=== PATIENT | female | born 1990 | race Caucasian/White ===

== ENCOUNTER 2020-03-07 15:40 | Observation (INO) | payer OTHER, SELFPAY ==
[2020-03-07 16:45] VITALS: BP 120/61; PULSE 74
[2020-03-07 17:01] VITALS: BMI 40.9
--- NOTE | 2020-03-07 17:01 | OBADM ---
This patient, Cookie Fuentes Widdolinh, admitted to the OB room Labor/Delivery/Recovery 106 for observation. Patient/family oriented to hospital policies and general routines including ID bracelet, bed and alarms, visiting hours, pain management, procedures, bathroom and other care routines, personal items, smoking policy, room service/diet, and visiting hours. Patient/Family are encouraged to report perceived risks to care and to ask questions if they do not understand what they are told or what they should do.
[2020-03-07 17:09] LABS: Add Urine Microscopic? YES; Appearance Urine Clear (Clear); Bacteria Urine Trace /hpf; Bilirubin Urine Negative (Negative); Blood Urine Negative (Negative); Color Urine Yellow (Yellow); Glucose Urine UA Negative (Negative); Ketones Urine Negative (Negative); Leukocyte Esterase Ur Negative LEU/UL (Negative); Mucus Urine Heavy /lpf; Nitrate Urine Negative (Negative); Protein Urine 1+ mg/dL (Negative); RBC Urine 0-2 /hpf (0-2); Specific Grav Ur 1.029 (1.001-1.035); Squamous Epithelial Cell Urine Rare /hpf (Few); WBC Urine 0-3 /hpf
--- NOTE | 2020-03-11 03:06 | PM.OBTRLD ---
OB - Triage/Final Diagnosis Visit Information Date of evaluation: 03/07/20 Reason for evaluation: threatened labor Evaluation Laboratory results: Laboratory Tests 03/07/20 16:50 Urine Color Yellow Urine Appearance Clear Urine pH 6.0 Ur Specific [place] 1.029 Urine Protein 1+ H Urine Glucose (UA) Negative Urine Ketones Negative Ur Blood (Man) Negative Urine Nitrate Negative Urine Bilirubin Negative Urine Urobilinogen 2.0 H Leukocyte Esterase Rfl Negative Urine RBC 0-2 Urine WBC 0-3 Ur Squamous Epith Cells Rare Urine Bacteria Trace Urine Mucus Heavy H
--- NOTE | 2020-03-11 03:07 | PM.OBTRLD ---
OB - Triage/Final Diagnosis Visit Information Date of evaluation: 03/09/20 Reason for evaluation: threatened labor Evaluation Laboratory results: Laboratory Tests 03/07/20 16:50 Urine Color Yellow Urine Appearance Clear Urine pH 6.0 Ur Specific [place] 1.029 Urine Protein 1+ H Urine Glucose (UA) Negative Urine Ketones Negative Ur Blood (Man) Negative Urine Nitrate Negative Urine Bilirubin Negative Urine Urobilinogen 2.0 H Leukocyte Esterase Rfl Negative Urine RBC 0-2 Urine WBC 0-3 Ur Squamous Epith Cells Rare Urine Bacteria Trace Urine Mucus Heavy H
== END 2020-03-07 17:46 | disposition home or self-care (01) ==
PROVIDERS: Advanced Practice Midwife; Admitting Provider Obstetrics & Gynecology; Visit Provider Obstetrics & Gynecology
DX: O47.03 False labor before 37 completed weeks of gestation, third trimester (principal); Z3A.37 37 weeks gestation of pregnancy
CPT/HCPCS: 81001; G0378; G0379

== ENCOUNTER 2020-03-08 19:27 | Observation (INO) | payer OTHER, SELFPAY ==
[2020-03-08 19:40] VITALS: BMI 41.8
--- NOTE | 2020-03-09 00:22 | PC.NURSE ---
03/08/20201939 This patient, Cookie Adam, admitted to the OB room Labor/Delivery/Recovery 105 for observation. Patient/family oriented to hospital policies and general routines including ID bracelet, bed and alarms, visiting hours, pain management, procedures, bathroom and other care routines, personal items, smoking policy, room service/diet, and visiting hours. Patient/Family are encouraged to report perceived risks to care and to ask questions if they do not understand what they are told or what they should do.
--- NOTE | 2020-03-13 12:27 | PM.OBTRLD ---
OB - Triage/Final Diagnosis Visit Information Date of evaluation: 03/09/20 Reason for evaluation: threatened labor
== END 2020-03-08 22:35 | disposition home or self-care (01) ==
PROVIDERS: Admitting Provider Obstetrics & Gynecology; Visit Provider Obstetrics & Gynecology
DX: O47.03 False labor before 37 completed weeks of gestation, third trimester (principal); Z3A.36 36 weeks gestation of pregnancy
CPT/HCPCS: G0378; G0379

== ENCOUNTER 2020-03-18 04:50 | Inpatient (IN) | payer OTHER, SELFPAY ==
[2020-03-18] VITALS (85 sets, daily range): BP systolic 61–161; BP diastolic 32–109; PULSE 44–115; RESP 16–18; TEMP 36.8–37.2; O2SAT 80–100; BMI 42.3
--- NOTE | 2020-03-18 05:28 | LDADM ---
This patient, Cookie Adam, was admitted to Labor/Delivery/Recovery 102 on 03/18/20 at 04:50. Plans for labor, pain management and were discussed with patient. Patient/family oriented to hospital policies and general routines including ID bracelet, bed and alarms, visiting hours, pain management, procedures, bathroom and other care routines, personal items, smoking policy, room service/diet and guest tray routines, infant security routines, and visiting hours. Patient/Family are encouraged to report perceived risks to care and to ask questions if they do not understand what they are told or what they should do. See OBIX for further documentation.
[2020-03-18 05:42] LABS: Basophils Absolute Auto 0.1 K/mm3 (0.0-0.1); Basophils Percent Auto 0.3 % (0.2-1.2); Eosinophils Absolute Auto 0.1 K/mm3 (0-0.3); Eosinophils Percent Auto 0.6 % (0-4.4); Hematocrit 36.6 % (37.0-47.0); Immature Granulocyte Absolute 0.07 K/mm3 (0.00-0.031); Immature Granulocyte Percent A 0.5 % (0-0.5); Lymphocytes Absolute Auto 2.87 K/mm3 (0.9-3.2); Lymphocytes Percent Auto 19.7 % (18.3-44.2); Mean Corpuscular HGB Conc 32.8 g/dl (32-36); Mean Corpuscular Hemoglobin 28.9 pg (26-34); Mean Corpuscular Volume 88.2 fl (80-100); Mean Platelet Volume 12.2 fl (7.4-10.4); Monocytes Percent Auto 6.6 % (2.6-8.5); Neutrophils Absolute Auto 10.5 K/mm3 (1.3-6.7); Neutrophils Percent Auto 72.3 % (45.5-73.1); Platelet Count Result 204 k/mm3 (150-375); Red Blood Count 4.15 M/mm3 (4.2-5.4); Red Cell Distribution Width 14.4 % (11.5-14.5); White Blood Count 14.5 K/mm3 (4.5-10.0)
[2020-03-18] MEDS: OXYTOCIN 30 UNITS/NS 500 ML 30 UNITS/500 ML BAG IV CONT (06:00)
--- NOTE | 2020-03-18 06:29 | WPDANESEPP ---
Anes - Eval Pre Procedure Procedure: Labor epidural Date/Time: 03/18/20 06:29 Surgeon: Gerardo Floyd Preop Diagnosis: pain during labor Pre Op Diagnosis: Induction of Labor Patient Data Age: 29 Gender: F Height: 1.63 m Weight: 112 kg Last Vital Signs Temp 37.1 C 03/18/20 06:00 Pulse 84 03/18/20 06:17 BP 123/74 03/18/20 06:17 Allergies Allergy/AdvReac Type Severity Reaction Status Date / Time naproxen Allergy Mild Unverified 09/18/13 11:10 Bumble Bee Allergy Mild SWELLING Uncoded 09/18/13 11:10 AND ITCHING Honey Bee Allergy Mild SWELLING Uncoded 09/18/13 11:10 AND ITCHING Home Medications Medication Instructions Recorded Confirmed Type PNV cmb#95-ferrous fumarate-FA 1 tablet PO DAILY MDD unknown 02/26/20 03/08/20 History [] Laboratory Tests 03/18/20 03/18/20 05:26 05:26 WBC 14.5 K/mm3 H K/mm3 (4.5-10.0) RBC 4.15 M/mm3 L M/mm3 (4.2-5.4) Hgb 12.0 g/dL g/dL (12.0-15.0) Hct 36.6 % L % (37.0-47.0) MCV 88.2 fl fl (80-100) MCH 28.9 pg pg (26-34) MCHC 32.8 g/dl g/dl (32-36) RDW 14.4 % % (11.5-14.5) Plt Count 204 k/mm3 k/mm3 (150-375) MPV 12.2 fl H fl (7.4-10.4) Immature Gran % (Auto) 0.5 % % (0-0.5) Neut % (Auto) 72.3 % % (45.5-73.1) Lymph % (Auto) 19.7 % % (18.3-44.2) [place] % (Auto) 6.6 % % (2.6-8.5) Eos % (Auto) 0.6 % % (0-4.4) Baso % (Auto) 0.3 % % (0.2-1.2) Lymph # (Auto) 2.87 K/mm3 K/mm3 (0.9-3.2) [place] # (Auto) 1.0 K/mm3 H K/mm3 (0.1-0.6) Eos # (Auto) 0.1 K/mm3 K/mm3 (0-0.3) Baso # (Auto) 0.1 K/mm3 K/mm3 (0.0-0.1) Abs Immat Gran (auto) 0.07 K/mm3 H K/mm3 (0.00-0.031) Absolute Neuts (auto) 10.5 K/mm3 H K/mm3 (1.3-6.7) Absolute Nucleated RBC 0.0 K/mm3 K/mm3 (0.0-0.012) Nucleated RBC % 0.0 % % (0.0-0.2) RPR Pending Patient hx anesthesia problems: none Family hx anesthesia problems: none [facility] Past Medical History Medical History (Updated 03/18/20 @ 06:30 by Lisy Jorgensen CRNA) IUP (intrauterine ), incidental Morbid obesity with BMI of 40.0-44.9, adult Family History Family History (Updated 02/26/20 @ 14:54 by Celena Daniels RN) Sibling Hypothyroidism Mother Ovarian dysfunction Social History Social History Smoking status: Never smoker Substance use: current Gender identity (if verbalized by the patient): Female Spiritual care concerns: No Exam Day of Procedure 03/18/20 06:29
--- NOTE | 2020-03-18 07:34 | WPDOBADMIT ---
Obstetrics - Admit Note Admission Note: record reviewed. No pertinent additions to the history and/or any subsequent changes in the physical findings that are not consistent with the expected course of the were found. EIL at 39 weeks, SVE /-2 large amount of clear odorless fluid Additions to the history and/or subsequent changes in the physical findings follow. None.
[2020-03-18] MEDS: fentaNYL CITRATE INJ (*CRX) 100 MCG/2 ML VIAL 50 MCG IV PUSH (08:12)
[2020-03-18 09:23] LABS: Rapid Plasma Reagin Non-Reactive (NonReactive)
[2020-03-18] MEDS: ONDANSETRON INJ 4 MG/2 ML VIAL IV PUSH (09:26)
--- NOTE | 2020-03-18 14:26 | P.PCNOB_ITS ---
OB - Delivery Note Procedure Delivery date: 03/18/20 Procedure: Vaginal delivery. Intrapartal events: None Induction method: AROM and per pitocin protocol Delivery monitor: external FHT and external uterine Route of delivery: Episiotomy description: None Laceration Description: Superficial Delivery repair: vicryl Specimen: No Estimated blood loss (mL): 100 Anesthesia type: Epidural Disposition: other () [place] Baby Date of : 03/18/20 Time of : 14:11 Weeks of gestation at delivery: 39 gender: Female Weight (pounds): 7 Weight (ounces): 2 presentation: vertex position: Left Occiput Anterior Placenta delivery description: Spontaneous cord vessel description: 3 Vessels and Delayed Cord Clamping score one minute: 8 score five minutes: 9 Narrative: Mom and baby in stable condition and skin to skin.
[2020-03-18] MEDS: OXYTOCIN 30 UNITS/NS 500 ML 30 UNITS/500 ML BAG 125 UNITS IV CONT (14:42)
[2020-03-18 16:12] LABS: Amphetamine Screen Urine Negative (Negative); Barbiturate Screen Urine Negative (Negative); Benzodiazepines Screen Urine Negative (Negative); Cannabinoid Screen Urine Negative (Negative); Cocaine Screen Urine Negative (Negative); Methadone Screen Urine Negative (Negative); Opiate Screen Urine Negative (Negative); Phencyclidine Screen Urine Negative (Negative)
--- NOTE | 2020-03-18 17:10 | PC.NURSE ---
Patient transferred to post room #283 per wheelchair from labor and delivery. Support person present. Oriented to unit, room, information board, rooming in, admission packet and security measures. Patient verbalizes understanding.
[2020-03-18] MEDS: ACETAMINOPHEN 325 MG TABLET 650 MG PO (19:29)
[2020-03-18] MEDS: IBUPROFEN 600 MG TABLET PO (23:15)
[2020-03-19 05:54] LABS: Hemoglobin 11.1 g/dL (12.0-15.0)
--- NOTE | 2020-03-19 07:29 | PM.OBPNVD ---
OB - PN: Subj Subjective Date/time seen: 03/19/20 07:29 Patient comments: no complaints baby status: doing well OB - PN: Obj Data Labs CBC & Chem 7: 03/19/20 05:28 Labs: Laboratory Results - last 24 hr 03/18/20 03/18/20 03/18/20 05:26 05:26 15:43 Hgb Hct Urine Opiates Screen Negative Urine Methadone Screen Negative Ur Barbiturates Screen Negative Ur Phencyclidine Scrn Negative Ur Amphetamine Screen Negative U Benzodiazepines Scrn Negative Urine Cocaine Screen Negative U Cannabinoids Screen Negative RPR Non-reactive Blood Type A Positive Antibody Screen Negative 03/19/20 05:28 Hgb 11.1 L Hct 34.0 L Urine Opiates Screen Urine Methadone Screen Ur Barbiturates Screen Ur Phencyclidine Scrn Ur Amphetamine Screen U Benzodiazepines Scrn Urine Cocaine Screen U Cannabinoids Screen RPR Blood Type Antibody Screen OB - PN A/P Plan day: 1 Plan: routine care and discharge home Time Spent With Patient Time: Total time spent is greater than 50% in coordination of care (as documented) at patient's floor/unit and/or counseling patient: Review of Systems Review of Systems: All systems reviewed & are unremarkable except as noted in HPI and below Exam Const: General: cooperative Nutritional Appearance: average body habitus Neuro: General: patient oriented x3 Psych: Appearance: grossly normal Affect: normal affect
[2020-03-19 08:00] VITALS: BP 119/67; PULSE 84; RESP 18; TEMP 36.8; O2SAT 100
[2020-03-19] MEDS: IBUPROFEN 600 MG TABLET PO ×2 (08:25→15:10)
[2020-03-19] MEDS: DOCUSATE SODIUM 100 MG CAPSULE PO (08:25)
[2020-03-19] MEDS: HYDROcodone/acetaminophen (*CRX) 5-325 MG TABLET 1 TAB PO ×2 (08:26→15:11)
--- NOTE | 2020-03-19 09:43 | WPDANLDPN2 ---
Anes-Prog Note L&D Date/Time: 03/19/20 09:43 Comfortable throughout: labor and delivery Neuraxial method: epidural Epidural/Spinal procedure site: clean & non-tender Neuro status: Neuro function grossly intact. Cardiovascular status: normal Respiratory status: normal Airway patency: baseline Mental status: baseline Post-Op hydration status: normal Vital Signs: Last Vital Signs Temp 36.8 C 03/18/20 20:00 Pulse 78 03/18/20 20:00 Resp 16 03/18/20 20:00 BP 124/74 03/18/20 20:00 Pulse Ox 100 03/18/20 20:00 Pain score (VAS): 0/0 I/O: Intake & Output 03/18/20 03/19/20 03/19/20 23:59 07:59 15:59 Output Total 107 Balance -107 Post-procedural complaints: none Patient feedback: Patient satisfied with anesthetic care.
[2020-03-21 09:19] VITALS: BP 114/67; PULSE 69; RESP 20; TEMP 36.8; O2SAT 100
--- NOTE | 2020-03-22 07:49 | PM.OBDSVD ---
DS: Admitting Diagnosis Admitting Diagnosis Admitting Diagnosis: Induction of Labor OB - DS: Summary OB Procedures : None OB Procedures Intrapartum: Spontaneous Vag Delivery OB Procedures: : None Time Spent with Patient Time attestation: Total time spent providing and/or coordinating discharge services: Discharge Plan Discharge Attending physician on discharge: Serg Floyd Discharging Clinician: Manju Hurtado Patient Disposition: Home, Self-Care Activity: pelvic rest Diet: regular Discharge Instructions: Education: Mom and Baby Guide Given to: Mother Follow-Up: Call your delivering provider's office for an appointment to be seen in: 4 Weeks Mom and baby should come to the [facility] for the follow-up appointment. Appointment Date/Time: March 21, 2020 at 9:00 am What to expect at your follow-up visit: Physical Assessment Call [phone] if you are unable to keep your appointment time. BREAST CARE: * Wear a snug supportive bra. * For engorgement discomfort: Bottle Feeding: * May apply ice packs EPISIOTOMY/PERINEAL CARE: * Until bleeding stops, use your anders bottle after urinating * Change your pad frequently throughout the day * You may take sitz baths several times a day (fill your bathtub with warm water and soak for 20 minutes.) Do NOT bathe in the water * No tub baths until seen by your physician - You may shower ACTIVITY: * Rest as much as possible. * Do not exercise or lift anything heavier than your baby (such as laundry or other children.) * Avoid stairs or driving as much as possible. * Do not put anything into the vagina. No douching, tampons, or sexual activity until seen by physician. NOTIFY PHYSICIAN IF YOU HAVE ANY QUESTIONS OR IF ANY OF THE FOLLOWING SYMPTOMS OCCUR: * If your episiotomy or incision becomes red, swollen, or more painful than what you have experienced in the hospital. * If your vaginal bleeding becomes foul smelling. * If your vaginal bleeding becomes more heavy than a period or if your bleeding changes from pink to bright red. However, you may pass an occasional walnut-sized clot once or twice for the first week . * If you experience a sharp, shooting pain in you calves. * If you discover a hard, reddened area on your breast or if you experience flu-like symptoms. DIET: * Eat regular, well-balanced meals. * Drink plenty of fluids daily. If , drink to thirst. Stand Alone Forms: General Discharge Information Follow-up/Referrals: Manju Hurtado CNM [Certified Nurse Licensed [employer]] - 4 Weeks Discharge Medications: Continued PNV cmb#95-ferrous fumarate-FA [] 28 mg iron- 800 mcg Tablet 1 tablet PO DAILY MDD unknown RF: 0 Date of admission: 03/18/20 04:50 Primary Care Provider: Lali Padilla Admitting Provider: Serg Floyd Attending physician on admission: Serg Floyd Condition: Stable
== END 2020-03-19 16:55 | disposition home or self-care (01) | DRG 560 ==
LOC: ANHLDR 05:00 → ANHOB2 17:21
PROVIDERS: Advanced Practice Midwife; Admitting Provider Obstetrics & Gynecology; Visit Provider Obstetrics & Gynecology
DX: O77.0 Labor and delivery complicated by meconium in amniotic fluid (principal); O70.0 First degree perineal laceration during delivery; Z3A.39 39 weeks gestation of pregnancy; Z37.0 Single live birth; O99.214 Obesity complicating childbirth; E66.01 Morbid (severe) obesity due to excess calories
CPT/HCPCS: 36415; 80307; 85014; 85018; 85025; 86592; 86850; 86900; 86901; A9270; J2405; J2590; J2795; J3010

== ENCOUNTER 2023-07-10 15:59 | Observation (INO) | payer OTHER, SELFPAY ==
[2023-07-10] VITALS (8 sets, daily range): BP systolic 96–120; BP diastolic 42–82; PULSE 59–81; RESP 18; TEMP 36.6; BMI 38.3
--- NOTE | ~2023-07-10 | US_ITS ---
EXAMINATION: US OB limited w BPP DATE: 07/10/2023 19:37 INDICATION: . TECHNIQUE: Real-time pelvic ultrasound was performed. COMPARISON: None. FINDINGS: There is a single living fetus in vertex presentation. The placenta is posterior. heart rate i s 157 beats per minute (bpm). The amniotic fluid index is 9.8 cm, which is normal. Biophysical profile performed by the technologist: breathing (30 sec sustained breathing in 30 minutes): 2 out of 2 movement (3 gross body movements in 30 minutes): 2 out of 2 tone (one episode of owepdmx-wbbtenodx-vtblynv limb movement): 2 out of 2 Amniotic fluid pocket (2 cm): 2 out of 2 Total score: 8 out of 8 IMPRESSION: 1. Single living fetus in vertex presentation. 2. Biophysical profile 8 out of 8. Reviewed, dictated and finalized at location E. STACKER
--- NOTE | 2023-07-10 16:30 | OBADM ---
This patient, Cookie Fuentes Widdolinh, admitted to the OB room 116 for observation. Patient/family oriented to hospital policies and general routines including ID bracelet, bed and alarms, visiting hours, pain management, procedures, bathroom and other care routines, personal items, smoking policy, room service/diet, and visiting hours. Patient/Family are encouraged to report perceived risks to care and to ask questions if they do not understand what they are told or what they should do.
[2023-07-10 17:18] LABS: Appearance Urine Clear (Clear); Bilirubin Urine Negative (Negative); Blood Urine Negative (Negative); Color Urine Yellow (Yellow); Glucose Urine UA Negative (Negative); Ketones Urine Negative (Negative); Leukocyte Esterase Ur Negative LEU/UL (Negative); Nitrate Urine Negative (Negative); Protein Urine Negative (Negative); Specific Grav Ur 1.026 (1.001-1.035); Urobilinogen Urine 0.2 mg/dL (<2.0)
[2023-07-10 17:43] LABS: Add Urine Microscopic? NO
[2023-07-10] MEDS: TERBUTALINE SULFATE 1 MG/ML VIAL 0.25 MG SUB-Q (18:08)
[2023-07-10] MEDS: BETAMETHASONE SOD PHOS/ACETATE 30 MG/5 ML VIAL 12 MG IM (18:11)
[2023-07-10] MEDS: CYCLOBENZAPRINE HCL 10 MG TABLET PO (19:14)
--- NOTE | 2023-07-11 15:11 | P.PNOB_ITS ---
OB - Triage/Final Diagnosis Visit Information Date of evaluation: 07/10/23 Reason for evaluation: other (back pain) Comments/Additional reasons for admission: I have assessed the risk for this patient, Cookie Adam, and determined that she would benefit from observation care. Evaluation Laboratory results: Laboratory Tests 07/10/23 16:48 Urine Color Yellow Urine Appearance Clear Urine pH 6.0 Ur Specific [place] 1.026 Urine Protein Negative Urine Glucose (UA) Negative Urine Ketones Negative Ur Blood (Man) Negative Urine Nitrate Negative Urine Bilirubin Negative Urine Urobilinogen 0.2 Leukocyte Esterase Rfl Negative Vital signs: Vital Signs - 24 hr 07/10/23 16:29 07/10/23 16:30 07/10/23 16:45 Temperature Pulse Rate 64 66 72 Respiratory Rate Blood Pressure 114/60 120/53 L 103/78 Oxygen Delivery 07/10/23 17:00 07/10/23 17:16 07/10/23 17:35 Temperature Pulse Rate 69 59 L 62 Respiratory Rate Blood Pressure 118/60 103/42 L 112/56 L Oxygen Delivery 07/10/23 18:07 07/10/23 18:30 07/10/23 16:30 Temperature Pulse Rate 62 81 Respiratory Rate Blood Pressure 96/82 L 107/81 Oxygen Delivery Room Air 07/10/23 16:30 Temperature 36.6 C Pulse Rate Respiratory Rate 18 Blood Pressure Oxygen Delivery
== END 2023-07-10 22:52 | disposition home or self-care (01) ==
PROVIDERS: Advanced Practice Midwife; Admitting Provider Obstetrics & Gynecology; Visit Provider Obstetrics & Gynecology
DX: O26.899 Other specified pregnancy related conditions, unspecified trimester (principal); R10.9 Unspecified abdominal pain; Z3A.32 32 weeks gestation of pregnancy
CPT/HCPCS: 76815; 76819; 81003; 84112; 96372; A9270; G0379; J0702; J3105

== ENCOUNTER 2023-07-11 17:56 | Outpatient (CLI) | payer OTHER, SELFPAY ==
[2023-07-11] MEDS: BETAMETHASONE SOD PHOS/ACETATE 30 MG/5 ML VIAL 12 MG IM (18:28)
== END 2023-07-11 18:30 | disposition home or self-care (01) ==
LOC: ANHOBOP 18:02 → ANHLDR 18:02
PROVIDERS: Visit Provider Advanced Practice Midwife
DX: Z34.90 Encounter for supervision of normal pregnancy, unspecified, unspecified trimester (principal); Z3A.00 Weeks of gestation of pregnancy not specified
CPT/HCPCS: 96372; 99199; J0702

== ENCOUNTER 2023-07-30 06:03 | Observation (INO) | payer OTHER, SELFPAY ==
--- NOTE | ~2023-07-30 | US_ITS ---
EXAMINATION: US OB limited w BPP DATE: 07/30/2023 09:09 INDICATION: Third trimester. TECHNIQUE: Real-time pelvic ultrasound was performed. COMPARISON: Ultrasound 07/10/2023 FINDINGS: There is a single living fetus in vertex presentation. The placenta is posterior. heart rate i s 125 beats per minute (bpm). The amniotic fluid index is 9.3 cm, which is normal. Biophysical profile performed by the technologist: breathing (30 sec sustained breathing in 30 minutes): 2 out of 2 movement (3 gross body movements in 30 minutes): 2 out of 2 tone (one episode of yrbdfyd-zwlhhrvpu-xhnzqxt limb movement): 2 out of 2 Amniotic fluid pocket (2 cm): 2 out of 2 Total score: 8 out of 8 IMPRESSION: 1. Single living fetus in vertex presentation. 2. Biophysical profile 8 out of 8. Reviewed, dictated and finalized at location A.
[2023-07-30 06:15] VITALS: BMI 38.2
[2023-07-30 07:58] VITALS: PULSE 74; O2SAT 98
[2023-07-30 08:03] VITALS: PULSE 68; O2SAT 98
[2023-07-30 08:08] VITALS: PULSE 66; O2SAT 99
--- NOTE | 2023-07-30 08:49 | PC.NURSE ---
Crystal Hurtado CNM notified of tracing, orders received to have ultrasound at bedside. Dr. Oneil reviewed tracing on unit. Dr. Oneil notified of BPP and SNEHAL results, okay to discharge.
--- NOTE | 2023-08-02 23:05 | PM.OBTRLD ---
OB - Triage/Final Diagnosis Visit Information Comments/Additional reasons for admission: I have assessed the risk for this patient, Cookie Adam, and determined that she would benefit from observation care. Final Diagnosis (1) Irregular contractions: Code(s): O47.9 - False labor, unspecified Status: Acute (2) Vaginal discharge during : Code(s): O26.899 - Other specified related conditions, unspecified trimester; N89.8 - Other specified noninflammatory disorders of vagina Status: Acute
== END 2023-07-30 08:58 | disposition home or self-care (01) ==
PROVIDERS: Admitting Provider Obstetrics & Gynecology; PCP Advanced Practice Midwife; Visit Provider Obstetrics & Gynecology
DX: O47.03 False labor before 37 completed weeks of gestation, third trimester (principal); Z3A.49 Greater than 42 weeks gestation of pregnancy; O26.893 Other specified pregnancy related conditions, third trimester; Z3A.35 35 weeks gestation of pregnancy
CPT/HCPCS: 76815; 76819; G0378; G0379

== ENCOUNTER 2023-08-19 18:15 | Observation (INO) | payer OTHER, SELFPAY ==
[2023-08-19 18:45] VITALS: BP 95/68; PULSE 99
[2023-08-19 18:46] VITALS: BP 112/57; PULSE 109
[2023-08-19 19:00] VITALS: BP 125/54; PULSE 80
[2023-08-19 19:15] VITALS: BP 110/55; PULSE 84
[2023-08-19 19:30] VITALS: BP 122/59; PULSE 98
--- NOTE | 2023-08-19 20:01 | OBADM ---
This patient, Cookie Fuentes Widdolinh, admitted to the OB room Labor/Delivery/Recovery 107 for observation. Patient/family oriented to hospital policies and general routines including ID bracelet, bed and alarms, visiting hours, pain management, procedures, bathroom and other care routines, personal items, smoking policy, room service/diet, and visiting hours. Patient/Family are encouraged to report perceived risks to care and to ask questions if they do not understand what they are told or what they should do.
[2023-08-19] MEDS: ACETAMINOPHEN 500 MG TABLET PO (20:10)
--- NOTE | 2023-09-17 07:38 | PM.OBTRLD ---
OB - Triage/Final Diagnosis Visit Information Comments/Additional reasons for admission: I have assessed the risk for this patient, Cookie Aadm, and determined that she would benefit from observation care. Final Diagnosis (1) False labor: Code(s): O47.9 - False labor, unspecified Status: Acute
== END 2023-08-19 20:15 | disposition home or self-care (01) ==
PROVIDERS: Admitting Provider Obstetrics & Gynecology; PCP Advanced Practice Midwife; Visit Provider Obstetrics & Gynecology
DX: O47.9 False labor, unspecified (principal); Z3A.00 Weeks of gestation of pregnancy not specified
CPT/HCPCS: 84112; A9270; G0378; G0379

== ENCOUNTER 2023-08-28 04:52 | Inpatient (IN) | payer OTHER, SELFPAY ==
[2023-08-28] VITALS (91 sets, daily range): BP systolic 49–195; BP diastolic 17–170; PULSE 32–163; RESP 16–18; TEMP 36.8–37.3; O2SAT 83–100; BMI 39.7
--- NOTE | 2023-08-28 05:21 | WPDANESEPP ---
Anes - Eval Pre Procedure Procedure: labor epidural Date/Time: 08/28/23 05:21 Surgeon: jay Preop Diagnosis: pain during labor Pre Op Diagnosis: IOL Patient Data Age: 32 Gender: F Height: Weight: Allergies Allergy/AdvReac Type Severity Reaction Status Date / Time naproxen Allergy Mild Itching Verified 08/21/23 13:22 amitriptyline AdvReac Irritable Verified 08/21/23 13:22 Bumble Bee Allergy Mild SWELLING Uncoded 08/21/23 13:22 AND ITCHING Honey Bee Allergy Mild SWELLING Uncoded 08/21/23 13:22 AND ITCHING Home Medications Medication Instructions Recorded Confirmed Type vit no.95-ferrous 1 tablet PO DAILY pain 02/26/20 08/21/23 History fumarate 28 mg-folic acid 800 mcg tablet () escitalopram oxalate 20 mg tablet 20 mg PO DAILY 07/10/23 08/21/23 History hydrocodone 5 mg-acetaminophen 325 1 tablet PO Q8H PRN Back Pain 07/10/23 08/21/23 History mg tablet ondansetron 4 mg disintegrating 4 mg PO Q8H PRN Nausea And Vomiting 07/10/23 08/21/23 History tablet valacyclovir 500 mg tablet 500 mg PO BID 08/21/23 08/21/23 History Patient hx anesthesia problems: none Family hx anesthesia problems: none Results Review: All pre-operative results and documents have been reviewed as part of the pre-operative evaluation. [facility] Past Medical History Medical History (Updated 08/28/23 @ 05:22 by Lisy Jorgensen CRNA) Anxiety Depression Herniated disc HSV (herpes simplex virus) infection Hx of migraines IUP (intrauterine ), incidental Morbid obesity with BMI of 40.0-44.9, adult PTSD (post-traumatic stress disorder) Family History Family History (Updated 08/21/23 @ 13:26 by Emma Roldan RN) Sibling Hypothyroidism Mother Ovarian dysfunction Chronic obstructive pulmonary disease Cancer Social History Social History Smoking status: Never smoker Substance use: current Gender identity (if verbalized by the patient): Female Spiritual care concerns: No Exam Day of Procedure 08/28/23 05:21
--- NOTE | 2023-08-28 05:31 | LDADM ---
This patient, Cookie Adam, was admitted to Labor/Delivery/Recovery 104 on 08/28/23 at 04:52. Plans for labor, pain management and were discussed with patient. Patient/family oriented to hospital policies and general routines including ID bracelet, bed and alarms, visiting hours, pain management, procedures, bathroom and other care routines, personal items, smoking policy, room service/diet and guest tray routines, infant security routines, and visiting hours. Patient/Family are encouraged to report perceived risks to care and to ask questions if they do not understand what they are told or what they should do. See OBIX for further documentation.
[2023-08-28 05:47] LABS: Basophils Percent Auto 0.3 % (0.2-1.2); Eosinophils Absolute Auto 0.1 K/mm3 (0-0.3); Eosinophils Percent Auto 0.5 % (0-4.4); Hematocrit 36.4 % (37.0-47.0); Hemoglobin 12.1 g/dL (12.0-15.0); Immature Granulocyte Absolute 0.05 K/mm3 (0.00-0.031); Immature Granulocyte Percent A 0.4 % (0-0.5); Lymphocytes Absolute Auto 2.81 K/mm3 (0.9-3.2); Mean Corpuscular HGB Conc 33.2 g/dl (32-36); Mean Corpuscular Hemoglobin 29.2 pg (26-34); Mean Corpuscular Volume 87.7 fl (80-100); Mean Platelet Volume 12.4 fl (7.4-10.4); Monocytes Absolute Auto 1.2 K/mm3 (0.1-0.6); Monocytes Percent Auto 8.8 % (2.6-8.5); Neutrophils Absolute Auto 9.9 K/mm3 (1.3-6.7); Platelet Count Result 200 k/mm3 (150-375); Red Blood Count 4.15 M/mm3 (4.2-5.4); Red Cell Distribution Width 15.3 % (11.5-14.5); White Blood Count 14.1 K/mm3 (4.5-10.0)
[2023-08-28] MEDS: AMPICILLIN 2 GM/NS 100 ML 2 GM/100 ML BAG IVPB (05:54)
[2023-08-28] MEDS: LACTATED RINGERS 1,000 ML 125 ML IV CONT ×2 (05:55→08:28)
[2023-08-28] MEDS: OXYTOCIN 30 UNITS/NS 500 ML 30 UNITS/500 ML BAG IV CONT (06:15)
[2023-08-28 06:22] LABS: Amphetamine Screen Urine Negative (Negative); Barbiturate Screen Urine Negative (Negative); Benzodiazepines Screen Urine Negative (Negative); Cannabinoid Screen Urine Negative (Negative); Cocaine Screen Urine Negative (Negative); Methadone Screen Urine Negative (Negative); Opiate Screen Urine Positive (Negative); Phencyclidine Screen Urine Negative (Negative)
[2023-08-28] MEDS: ONDANSETRON INJ 4 MG/2 ML VIAL IV PUSH (06:27)
[2023-08-28 06:47] LABS: Rubella IgG Antibody 3.7 IU/ML
--- NOTE | 2023-08-28 07:30 | WPDOBADMIT ---
Obstetrics - Admit Note Admission Note: record reviewed. No pertinent additions to the history and/or any subsequent changes in the physical findings that are not consistent with the expected course of the were found. Additions to the history and/or subsequent changes in the physical findings follow. IOL, SVE 3-4/80/-1 AROM moderate amount of clear, odorless fluid, unable to advance IUPC, unable to place anticipate vaginal delivery
[2023-08-28] MEDS: AMPICILLIN 1 GM/NS 50 ML 1 GM/50 ML BAG IVPB (09:54)
[2023-08-28] MEDS: busPIRone HCL 5 MG TABLET PO ×2 (10:01→22:06)
--- NOTE | 2023-08-28 11:14 | PM.OBPRVD ---
OB - Vaginal Delivery Note Procedure Delivery date: 08/28/23 Intrapartal Events: Other (meconium, +GBS) Induction method: AROM and Per Pitocin Protocol Delivery monitor: External FHT and External Uterine Route of delivery: Episiotomy description: None Laceration Description: None Specimen: No Quantitative Blood Loss (ml): 75 Anesthesia type: Epidural Disposition: Floor Complications: No immediate complications Baby Date of : 08/28/23 Time of : 11:07 Weeks of gestation at delivery: 39 Infant gender: Female Weight (pounds): 7 Weight (ounces): 1 presentation: vertex position: Left Occiput Anterior Placenta delivery description: Spontaneous Cord Vessel Description: 3 Vessels, Nuchal Cord (x1) and Loose score one minute: 7 score five minutes: 9 Narrative: mother and baby in stable condition
[2023-08-28] MEDS: OXYTOCIN 30 UNITS/NS 500 ML 30 UNITS/500 ML BAG 125 UNITS IV CONT (11:54)
[2023-08-28] MEDS: miSOPROStol 200 MCG TABLET 1000 MCG RECTAL (12:07)
[2023-08-28] MEDS: METHYLERGONOVINE MALEATE 0.2 MG/ML VIAL IM (13:16)
[2023-08-28] MEDS: fentaNYL CITRATE INJ (*CRX) 100 MCG/2 ML VIAL IV PUSH (13:22)
[2023-08-28] MEDS: LORazepam (*CRX) 0.5 MG TABLET PO (13:45)
[2023-08-28] MEDS: ACETAMINOPHEN 325 MG TABLET 650 MG PO (14:25)
[2023-08-28 14:40] LABS: Rapid Plasma Reagin Non-Reactive (NonReactive)
--- NOTE | 2023-08-28 15:00 | PC.NURSE ---
Patient transferred to post room #280 per wheelchair from labor and delivery. Support person present. Oriented to unit, room, information board, rooming in, admission packet and security measures. Patient verbalizes understanding.
[2023-08-28 17:49] LABS: Basophils Percent Auto 0.2 % (0.2-1.2); Eosinophils Absolute Auto 0.1 K/mm3 (0-0.3); Eosinophils Percent Auto 0.4 % (0-4.4); Hematocrit 31.7 % (37.0-47.0); Hemoglobin 10.4 g/dL (12.0-15.0); Immature Granulocyte Absolute 0.05 K/mm3 (0.00-0.031); Immature Granulocyte Percent A 0.3 % (0-0.5); Lymphocytes Absolute Auto 2.11 K/mm3 (0.9-3.2); Lymphocytes Percent Auto 14.4 % (18.3-44.2); Mean Corpuscular HGB Conc 32.8 g/dl (32-36); Mean Corpuscular Hemoglobin 28.8 pg (26-34); Mean Corpuscular Volume 87.8 fl (80-100); Mean Platelet Volume 12.2 fl (7.4-10.4); Monocytes Absolute Auto 1.1 K/mm3 (0.1-0.6); Monocytes Percent Auto 7.2 % (2.6-8.5); Neutrophils Absolute Auto 11.3 K/mm3 (1.3-6.7); Neutrophils Percent Auto 77.5 % (45.5-73.1); Platelet Count Result 164 k/mm3 (150-375); Red Blood Count 3.61 M/mm3 (4.2-5.4); Red Cell Distribution Width 15.3 % (11.5-14.5); White Blood Count 14.6 K/mm3 (4.5-10.0)
--- NOTE | 2023-08-28 18:01 | P.PNOB_ITS ---
OB - PN: Subj Subjective Date/time seen: 08/28/23 18:01 Interval history: called at end of vaginal recovery, increased blood clots, cytotec, methergine, pitocin, uterus manually evacuated and Evi placed. stabilized. dr htompson co- managing, pt stable OB - PN: Obj Data Labs 08/28/23 17:39 Labs: Laboratory Results - last 24 hr 08/28/23 08/28/23 08/28/23 05:33 06:00 17:39 WBC 14.1 H 14.6 H RBC 4.15 L 3.61 L Hgb 12.1 10.4 L Hct 36.4 L 31.7 L MCV 87.7 87.8 MCH 29.2 28.8 MCHC 33.2 32.8 RDW 15.3 H 15.3 H Plt Count 200 164 MPV 12.4 H 12.2 H Immature Gran % (Auto) 0.4 0.3 Neut % (Auto) 70.0 77.5 H Lymph % (Auto) 20.0 14.4 L [place] % (Auto) 8.8 H 7.2 Eos % (Auto) 0.5 0.4 Baso % (Auto) 0.3 0.2 Lymph # (Auto) 2.81 2.11 [place] # (Auto) 1.2 H 1.1 H Eos # (Auto) 0.1 0.1 Baso # (Auto) 0.0 0.0 Abs Immat Gran (auto) 0.05 H 0.05 H Absolute Neuts (auto) 9.9 H 11.3 H Absolute Nucleated RBC 0.000 0.000 Nucleated RBC % 0.0 0.0 Urine Opiates Screen Positive A Urine Methadone Screen Negative Ur Barbiturates Screen Negative Ur Phencyclidine Scrn Negative Ur Amphetamine Screen Negative U Benzodiazepines Scrn Negative Urine Cocaine Screen Negative U Cannabinoids Screen Negative RPR Non-reactive Rubella IgG Antibody 3.7 L Blood Type A Positive Antibody Screen Negative OB - PN A/P Time Spent With Patient Time: Total time spent is greater than 50% in coordination of care (as documented) at patient's floor/unit and/or counseling patient:
[2023-08-28] MEDS: valACYclovir HCL 500 MG TABLET PO (20:16)
[2023-08-28] MEDS: HYDROcodone/acetaminophen (*CRX) 5-325 MG TABLET 1 TAB PO (20:16)
[2023-08-28] MEDS: IBUPROFEN 600 MG TABLET PO (22:11)
[2023-08-29 01:00] VITALS: BP 91/68; PULSE 64; RESP 18; TEMP 37.1; O2SAT 98
--- NOTE | 2023-08-29 03:16 | PM.OBPNVD ---
OB - PN: Subj Subjective Date/time seen: 08/29/23 03:16 Interval history: Evi removed, bleeding stable, fundus firm pt doing well this am declines anxiety or pain currently OB - PN: Obj Data Labs 08/28/23 17:39 Labs: Laboratory Results - last 24 hr 08/28/23 08/28/23 08/28/23 05:33 06:00 17:39 WBC 14.1 H 14.6 H RBC 4.15 L 3.61 L Hgb 12.1 10.4 L Hct 36.4 L 31.7 L MCV 87.7 87.8 MCH 29.2 28.8 MCHC 33.2 32.8 RDW 15.3 H 15.3 H Plt Count 200 164 MPV 12.4 H 12.2 H Immature Gran % (Auto) 0.4 0.3 Neut % (Auto) 70.0 77.5 H Lymph % (Auto) 20.[address] % (Auto) 8.8 H 7.2 Eos % (Auto) 0.5 0.4 Baso % (Auto) 0.3 0.2 Lymph # (Auto) 2.[address] [place] # (Auto) 1.2 H 1.1 H Eos # (Auto) 0.1 0.1 Baso # (Auto) 0.0 0.0 Abs Immat Gran (auto) 0.05 H 0.05 H Absolute Neuts (auto) 9.9 H 11.3 H Absolute Nucleated RBC 0.000 0.000 Nucleated RBC % 0.0 0.0 Urine Opiates Screen Positive A Urine Methadone Screen Negative Ur Barbiturates Screen Negative Ur Phencyclidine Scrn Negative Ur Amphetamine Screen Negative U Benzodiazepines Scrn Negative Urine Cocaine Screen Negative U Cannabinoids Screen Negative RPR Non-reactive Rubella IgG Antibody 3.7 L Blood Type A Positive Antibody Screen Negative OB - PN A/P Plan day: 1 Plan: routine care and discharge home Comments: if bleeding remains stable pt may be discharged later this afternoon/evening Time Spent With Patient Time: Total time spent is greater than 50% in coordination of care (as documented) at patient's floor/unit and/or counseling patient: Review of Systems Review of Systems: All systems reviewed & are unremarkable except as noted in HPI and below Exam Const: General: cooperative and healthy appearing Chest: Chest palpation & inspection: normal inspection of the chest Resp: Effort & Inspection: normal respiratory effort Back/Spine/Pelvis: Back: no CVA tenderness Skin: General skin exam: normal color Neuro: General: patient oriented x3 Extrem: General: normal to inspection Psych: Appearance: grossly normal
--- NOTE | 2023-08-29 03:20 | P.DS_ITS ---
DS: Admitting Diagnosis Discharge Date 08/29/23 Admitting Diagnosis IOL DS: Discharge Diagnosis Discharge Diagnosis (1) Vaginal delivery: Code(s): O80 - Encounter for full-term uncomplicated delivery Status: Acute (2) hemorrhage: Code(s): O72.1 - Other immediate hemorrhage Status: Acute OB - DS: Summary OB Procedures : None OB Procedures Intrapartum: Spontaneous Vag Delivery OB Procedures: : None Peripartum Data Laceration Description: None Episiotomy description: None Time Spent with Patient Time attestation: Total time spent providing and/or coordinating discharge services: DS: Data Data Completed and Pending Labs on day of discharge: Labs from last 24 hours 08/28/23 08/28/23 08/28/23 17:39 06:00 05:33 WBC 14.6 H 14.1 H RBC 3.61 L 4.15 L Hgb 10.4 L 12.1 Hct 31.7 L 36.4 L MCV 87.8 87.7 MCH 28.8 29.2 MCHC 32.8 33.2 RDW 15.3 H 15.3 H Plt Count 164 200 MPV 12.2 H 12.4 H Immature Gran % (Auto) 0.3 0.4 Neut % (Auto) 77.5 H 70.0 Lymph % (Auto) 14.4 L 20.0 Chambers % (Auto) 7.2 8.8 H Eos % (Auto) 0.4 0.5 Baso % (Auto) 0.2 0.3 Lymph # (Auto) 2.11 2.81 Chambers # (Auto) 1.1 H 1.2 H Eos # (Auto) 0.1 0.1 Baso # (Auto) 0.0 0.0 Abs Immat Gran (auto) 0.05 H 0.05 H Absolute Neuts (auto) 11.3 H 9.9 H Absolute Nucleated RBC 0.000 0.000 Nucleated RBC % 0.0 0.0 Urine Opiates Screen Positive A Urine Methadone Screen Negative Ur Barbiturates Screen Negative Ur Phencyclidine Scrn Negative Ur Amphetamine Screen Negative U Benzodiazepines Scrn Negative Urine Cocaine Screen Negative U Cannabinoids Screen Negative RPR Non-reactive Rubella IgG Antibody 3.7 L Blood Type A Positive Antibody Screen Negative Discharge Plan Discharge Attending physician on discharge: Serg Floyd Consulting providers: Manju Hurtado Discharging Clinician: Manju Hurtado Patient Disposition: Home, Self-Care Activity: pelvic rest Diet: regular Patient Instructions: Antibiotic Form Stand Alone Forms: General Discharge Information Follow-up/Referrals: Manju Hurtado CNM [Certified Nurse Network Development Coordinator] - 4 Weeks Discharge Medications: New ibuprofen 600 mg Tablet 600 mg PO Q6H PRN (Reason: Cramping) Qty: 30 0RF Continued valacyclovir 500 mg tablet 500 mg PO BID PNV [id number] fumarate-FA [] 28 mg iron- 800 mcg Tablet 1 tablet PO DAILY MDD unknown escitalopram oxalate 20 mg tablet 20 mg PO DAILY Discontinued hydrocodone-acetaminophen 5-325 mg tablet 1 tablet PO Q8H PRN (Reason: Back Pain) ondansetron 4 mg tablet,disintegrating 4 mg PO Q8H PRN (Reason: Nausea And Vomiting) Date of admission: 08/28/23 04:52 Primary Care Provider: PHYSICIAN,[employer] [employer] Admitting Provider: Serg Floyd Attending physician on admission: Serg Floyd Condition: Stable
[2023-08-29] MEDS: IBUPROFEN 600 MG TABLET PO (04:52)
--- NOTE | 2023-08-29 08:11 | WPDANLDPN2 ---
Anes-Prog Note L&D Date/Time: 08/29/23 08:11 Comfortable throughout: labor and delivery Neuraxial method: epidural Epidural/Spinal procedure site: tender (soreness at site of insertion. site is clean, no redness.) Neuro status: Neuro function grossly intact. Cardiovascular status: normal (soft BP) Respiratory status: normal Airway patency: baseline Mental status: baseline Post-Op hydration status: normal Vital Signs: Last Vital Signs Temp 37.1 C 08/29/23 01:00 Pulse 64 08/29/23 01:00 Resp 18 08/29/23 01:00 BP 91/68 L 08/29/23 01:00 Pulse Ox 98 08/29/23 01:00 O2 Del Method Room Air 08/28/23 06:09 Pain score (VAS): 310 I/O: Intake & Output 08/28/23 08/29/23 08/29/23 23:59 07:59 15:59 Intake Total 500 200 Output Total 1150 Balance 500 -950 Post-procedural complaints: none Patient feedback: Patient satisfied with anesthetic care.
[2023-08-29 08:15] VITALS: BP 112/52; PULSE 58; RESP 18; TEMP 36.7; O2SAT 99
[2023-08-29] MEDS: busPIRone HCL 5 MG TABLET PO (09:01)
[2023-08-29] MEDS: HYDROcodone/acetaminophen (*CRX) 5-325 MG TABLET 1 TAB PO (09:01)
[2023-08-29] MEDS: ESCITALOPRAM OXALATE 10 MG TABLET 20 MG PO (09:01)
[2023-08-29] MEDS: valACYclovir HCL 500 MG TABLET PO (09:01)
[2023-08-29] MEDS: medroxyPROGESTERone ACETATE IM 150 MG/ML SYR IM (09:02)
[2023-08-29 10:02] LABS: Hematocrit 31.4 % (37.0-47.0)
--- NOTE | 2023-08-29 11:01 | PC.NURSE ---
Patient viewed the discharge video Mother & Baby Care, The First Two Weeks . Patient was given the opportunity and encouraged to ask questions. Patient verbalized understanding of information shared and has been given the mother/baby guide for home reference.
[2023-08-30 13:47] VITALS: BP 120/64; PULSE 76; RESP 18; TEMP 37; O2SAT 100
== END 2023-08-29 14:03 | disposition home or self-care (01) | DRG 542 ==
LOC: ANHLDR 04:55 → ANHOB2 15:01
PROVIDERS: Advanced Practice Midwife; Admitting Provider Obstetrics & Gynecology; Visit Provider Obstetrics & Gynecology
DX: O99.824 Streptococcus B carrier state complicating childbirth (principal); Z37.0 Single live birth; Z3A.39 39 weeks gestation of pregnancy; O69.81X0 Labor and delivery complicated by cord around neck, without compression, not applicable or unspecified; O77.0 Labor and delivery complicated by meconium in amniotic fluid; O72.1 Other immediate postpartum hemorrhage
CPT/HCPCS: 36415; 80307; 84112; 85014; 85018; 85025; 86592; 86762; 86850; 86900; 86901; A9270; J0290; J1050; J2210; J2405; J2590; J2795; J3010; J7120